=== PATIENT | male | born 1995 | race African-American/Black ===

== ENCOUNTER 2022-04-08 00:31 | Emergency (ER) | payer MEDICAID, OTHER ==
[~2022-04-08] VITALS: Ht 170.2 cm; Wt 75.0 kg
[2022-04-08] MEDS ORDERED: KETOROLAC 30MG/ML VIAL IM ONE (03:45)
[2022-04-08] MEDS ORDERED: IBUP-2030 MT (03:56)
[2022-04-08 04:11] VITALS: BP 125/68
== END 2022-04-08 04:13 | disposition home or self-care (01) ==
LOC: ER 00:31
DX: S13.8XXA Sprain of joints and ligaments of other parts of neck, initial encounter (principal); S43.491A Other sprain of right shoulder joint, initial encounter; V49.49XA Driver injured in collision with other motor vehicles in traffic accident, initial encounter; Y93.89 Activity, other specified; Y92.89 Other specified places as the place of occurrence of the external cause; Y99.8 Other external cause status; J45.909 Unspecified asthma, uncomplicated
CPT/HCPCS: 72125; 73030; 93005; 96372; 99285; J1885